=== PATIENT | female | born 2000 | race Caucasian/White ===

== ENCOUNTER 2021-09-28 17:54 | Emergency (ER) | payer BC ==
[2021-09-28 18:12] VITALS: BP 150/94; PULSE 93; RESP 16; TEMP 98.8; BMI 24.7
== END 2021-09-28 19:51 | disposition home or self-care (01) ==
LOC: FER 17:54
DX: R07.9 Chest pain, unspecified (principal)
CPT/HCPCS: 71046-TC-FY; 93005; 99284-25